=== PATIENT | male | born 1955 | race Asian ===

== ENCOUNTER → 2017-12-10 | Outpatient (CLI) | payer MEDICARE, OTHER | END | disposition home or self-care (01) | LOC: RADPV 11:31 | PROVIDERS: ATTEND Legal Medicine | DX: R05 Cough (principal); I70.0 Atherosclerosis of aorta | CPT/HCPCS: 71046 ==

== ENCOUNTER → 2018-04-30 | Outpatient (CLI) | payer MEDICARE, OTHER | END | disposition home or self-care (01) | LOC: RADPV 11:04 | PROVIDERS: ATTEND Legal Medicine | DX: M77.51 Other enthesopathy of right foot and ankle (principal); M10.9 Gout, unspecified; M19.071 Primary osteoarthritis, right ankle and foot ==

== ENCOUNTER 2024-11-10 00:39 | Inpatient (IN) | payer MEDICARE, OTHER ==
[2024-11-09 02:05] VITALS: PULSE 136; RESP 40; O2SAT 100
[2024-11-10] VITALS (7 sets, daily range): BP systolic 120–150; BP diastolic 74–89; PULSE 80–136; RESP 18–40; TEMP 98.3–99.3; O2SAT 94–100
[~2024-11-10] VITALS: Ht 167.6 cm; Wt 58.1 kg
[2024-11-10] MEDS: FUROSEMIDE 40 MG/4 ML VIAL IVP ONE (01:44)
[2024-11-10] MEDS: NITROGLYCERIN 2% (1 GM=INCH) OINTMENT PACKET TP ONE (01:44)
[2024-11-10] MEDS: ASPIRIN 325 MG TABLET PO ONE (01:44)
[2024-11-10] MEDS: NITROGLYCERIN 0.4 MG SUBLINGUAL TABLET #25 SL ONE (01:45)
[2024-11-10] MEDS ORDERED: 0.9% SODIUM CHLORIDE 10 ML SYRINGE IVP PRN (01:45)
[2024-11-10] MEDS: INSULIN REGULAR, HUMAN 100 UNITS/ML IVP ONE (01:50)
[2024-11-10] MEDS: SODIUM CHLORIDE 0.9% 250 ML IV ONE (01:57)
[2024-11-10] MEDS: CefTRIAXone 1 GM/DEXTROSE 50 ML IV ONE (02:04)
[2024-11-10 02:10] LABS: BASOPHILS % (AUTO) 1.1 % (0.0-2.0); EOSINOPHILS % (AUTO) 1.4 % (1.0-6.0); HEMATOCRIT 44.6 % (41-53); HEMOGLOBIN 14.5 g/dL (13.5-17.5); LYMPHOCYTES # (AUTO) 2.2 K/uL (1.0-4.8); LYMPHOCYTES % (AUTO) 16.4 % (22.0-44.0); MEAN CORPUSCULAR HEMOGLOBIN 33.2 pg (26.0-34.0); MEAN CORPUSCULAR HGB CONC 32.4 G/dL (31.0-37.0); MEAN CORPUSCULAR VOLUME 102 fL (80-100); MONOCYTES # (AUTO) 1.1 K/uL (0.1-1.0); MONOCYTES % (AUTO) 8.2 % (2.0-9.0); NEUTROPHILS # (AUTO) 9.9 K/uL (1.8-7.7); NEUTROPHILS % (AUTO) 72.9 % (40.0-70.0); PLATELET COUNT (AUTO) 296 K/uL (150-450); RED BLOOD CELL COUNT(AUTO) 4.36 MIL/uL (4.50-5.90); RED CELL DISTRIBUTION WIDTH 13.7 % (11.5-14.5); WHITE BLOOD COUNT (AUTO) 13.6 K/uL (4.5-11.0)
[2024-11-10 02:19] LABS: ABG BASE EXCESS -9.7 mmol/L (-2.0-3.0); ABG CARBOXYHEMOGLOBIN 0.9 % (0.5-1.5); ABG HCO3 17.1 mmol/L (21.0-28.0); ABG METHEMOGLOBIN 0.6 % (0.0-1.5); ABG OXYGEN CONTENT 20.7 mL/dL (15.0-23.0); ABG OXYHEMOGLOBIN 98.5 % (94.0-98.0); ABG PCO2 43 mmHg (32.0-48.0); ABG TOTAL HEMOGLOBIN 14.5 G/dL (13.5-17.5); SOURCE, BLOOD GAS ARTERIAL; TEMPERATURE, FAHRENHEIT, BG 96.8 FAHREN (96.0-98.6)
[2024-11-10 02:24] LABS: ABG A-A DIFF O2 397.1 mmHg (10-20.0); ABG PH 7.239 (7.350-7.450); ALLEN TEST, BLOOD GAS Positive; O2 DEVICE,BLOOD GAS BIPAP (ROOM AIR); SITE, BLOOD GAS LFT RADIAL
[2024-11-10 02:25] LABS: INSPIRATORY TIME, BG 0.9 SEC
[2024-11-10 02:27] LABS: COVID AG,FIA SOURCE NASAL SWAB
[2024-11-10 02:40] LABS: LACTIC ACID 5.5 mmol/L (0.4-2.0)
[2024-11-10 02:47] LABS: B-TYPE NATRIURETIC PEPTIDE 2240 pg/mL (0-100)
[2024-11-10 02:47] LABS: SARS-COV2 (COVID) ANTIGEN,FIA Negative (Negative)
[2024-11-10 02:48] LABS: INFLUENZA TYPE A NEGATIVE FOR TYPE A (NEGATIVE); INFLUENZA TYPE B NEGATIVE FOR TYPE B (NEGATIVE)
[2024-11-10 02:49] LABS: ALANINE AMINOTRANSFERASE 41 U/L (12-78); ALBUMIN 2.9 g/dL (3.4-5.0); ALKALINE PHOSPHATASE 259 U/L (46-116); ANION GAP 16 mmol/L (8-16); ASPARTATE AMINOTRANSFERASE 64 U/L (15-37); BILIRUBIN,TOTAL 0.7 mg/dL (0.1-1.0); CALCIUM, TOTAL 8.8 mg/dL (8.8-10.5); CARBON DIOXIDE 20 mmol/L (22-29); CHLORIDE 96 mmol/L (98-107); CREATININE 1.48 mg/dL (0.60-1.30); GLOMERULAR FILTR. RATE CALC 47 mL/min (>60); LIPASE 36 U/L (16-77); POTASSIUM 3.8 mmol/L (3.5-5.1); SODIUM SERUM 132 mmol/L (136-145); THYROID STIMULATING HORMONE 2.81 uIU/mL (0.36-3.74); TOTAL PROTEIN, SERUM 7.7 g/dL (6.4-8.2); UREA NITROGEN, BLOOD 21 mg/dL (7-18)
[2024-11-10 02:51] LABS: GLUCOSE,RANDOM 493 mg/dL (70-110)
[2024-11-10] MEDS ORDERED: DEXTROSE 50%-WATER 25 GM/50 ML SYRINGE IVP PRN (03:00)
[2024-11-10 03:05] LABS: GLUCOMETER DEV NAME(LOC) ERT.6; GLUCOSE,POINT OF CARE 547 MG/DL (70-110)
[2024-11-10 03:07] LABS: APPEARANCE,URINE CLEAR (CLEAR); BILIRUBIN,URINE NEGATIVE (NEGATIVE); COLOR,URINE LIGHT YELLOW (YELLOW); GLUCOSE, URINE (UA) >=1000 mg/dL (NEGATIVE); KETONES,URINE NEGATIVE (NEGATIVE); LEUKOCYTE ESTERASE ,URINE NEGATIVE (NEGATIVE); NITRATE,URINE NEGATIVE (NEGATIVE); OCCULT BLOOD,URINE NEGATIVE (NEGATIVE); PROTEIN,URINE TRACE mg/dL (NEGATIVE); SPECIFIC GRAVITIY, URINE 1.012 (1.003-1.030); UROBILINOGEN,URINE <=1.0 mg/dL (<=1.0)
[2024-11-10] MEDS ORDERED: ACETAMINOPHEN 325 MG TABLET PO PRN (03:15)
[2024-11-10] MEDS ORDERED: ONDANSETRON HCL 4 MG/2 ML VIAL IVP PRN (03:15)
[2024-11-10] MEDS ORDERED: IPRATROPIUM BROMIDE 0.5 MG/2.5 ML NEB SOLUTION NEB PRN (03:15)
[2024-11-10] MEDS ORDERED: ALBUTEROL SULFATE 2.5 MG/0.5 ML NEB SOLUTION NEB PRN (03:15)
[2024-11-10 03:19] LABS: BACTERIA,URINE Rare /HPF (None Seen); RBC,URINE 0-2 /HPF (0-2); WBC,URINE 0-2 /HPF (0-5)
[2024-11-10] MEDS: INSULIN GLARGINE,HUM.REC.ANLOG 100 UNITS/ML SQ SCH ×3 (03:20→20:50)
[2024-11-10] MEDS: VANCOMYCIN 1.25 GM/WATER(PEG) 250 ML IV ONE (03:29)
[2024-11-10 03:37] LABS: TROPONIN I-HIGH SENSITIVITY 503 ng/L (<76)
[2024-11-10 06:58] LABS: TROPONIN I-HIGH SENSITIVITY 354 ng/L (<76)
[2024-11-10] MEDS: HEPARIN SODIUM,PORCINE 5,000 UNITS/ML VIAL SQ SCH (07:13)
[2024-11-10] MEDS: DOCUSATE SODIUM 100 MG CAPSULE PO SCH (07:14)
[2024-11-10 09:11] LABS: GLUCOMETER DEV NAME(LOC) ERT.6; GLUCOSE,POINT OF CARE 286 MG/DL (70-110)
[2024-11-10 09:11] LABS: GLUCOMETER DEV NAME(LOC) ERT.6; GLUCOSE,POINT OF CARE 369 MG/DL (70-110)
[2024-11-10 14:00] LABS: TROPONIN I-HIGH SENSITIVITY 332 ng/L (<76)
[2024-11-10] MEDS: INSULIN LISPRO 100 UNITS/ML SQ PRN (17:08)
[2024-11-10 18:31] LABS: GLUCOMETER DEV NAME(LOC) 5S.1D; GLUCOSE,POINT OF CARE 311 MG/DL (70-110)
[2024-11-10] MEDS: GuaiFENesin/D-METHORPHAN [SUGAR-FREE] 200-20MG/10 ML SYRUP UDCUP PO PRN (21:02)
[2024-11-10] MEDS: FUROSEMIDE 20 MG/2 ML VIAL IVP SCH (21:02)
[2024-11-10] MEDS ORDERED: FUROSEMIDE 20 MG/2 ML VIAL IVP SCH (21:45)
[2024-11-10] MEDS: CHLORHEXIDINE GLUCONATE 2% TOWELETTE [2'S/6'S] TP SCH (22:15)
[2024-11-11] VITALS (7 sets, daily range): BP systolic 113–139; BP diastolic 55–80; PULSE 73–99; RESP 18–20; TEMP 97.9–98.6; O2SAT 95–100
[2024-11-11 07:23] LABS: BASOPHILS % (AUTO) 0.9 % (0.0-2.0); EOSINOPHILS % (AUTO) 0.9 % (1.0-6.0); HEMATOCRIT 37.9 % (41-53); HEMOGLOBIN 12.8 g/dL (13.5-17.5); LYMPHOCYTES # (AUTO) 1.5 K/uL (1.0-4.8); LYMPHOCYTES % (AUTO) 12.5 % (22.0-44.0); MEAN CORPUSCULAR HEMOGLOBIN 33.3 pg (26.0-34.0); MEAN CORPUSCULAR HGB CONC 33.7 G/dL (31.0-37.0); MEAN CORPUSCULAR VOLUME 99 fL (80-100); MONOCYTES # (AUTO) 1.2 K/uL (0.1-1.0); MONOCYTES % (AUTO) 9.3 % (2.0-9.0); NEUTROPHILS # (AUTO) 9.5 K/uL (1.8-7.7); NEUTROPHILS % (AUTO) 76.4 % (40.0-70.0); PLATELET COUNT (AUTO) 304 K/uL (150-450); RED BLOOD CELL COUNT(AUTO) 3.84 MIL/uL (4.50-5.90); RED CELL DISTRIBUTION WIDTH 13.5 % (11.5-14.5); WHITE BLOOD COUNT (AUTO) 12.4 K/uL (4.5-11.0)
[2024-11-11 07:34] LABS: ANION GAP 12 mmol/L (8-16); CALCIUM, TOTAL 8.2 mg/dL (8.8-10.5); CARBON DIOXIDE 26 mmol/L (22-29); CHLORIDE 100 mmol/L (98-107); CREATININE 1.19 mg/dL (0.60-1.30); GLOMERULAR FILTR. RATE CALC > 60 mL/min (>60); GLUCOSE,RANDOM 239 mg/dL (70-110); POTASSIUM 3.1 mmol/L (3.5-5.1); SODIUM SERUM 138 mmol/L (136-145); UREA NITROGEN, BLOOD 17 mg/dL (7-18)
[2024-11-11] MEDS: VANCOMYCIN 1.25 GM/WATER(PEG) 250 ML IV SCH (08:11)
[2024-11-11 08:21] LABS: GLUCOMETER DEV NAME(LOC) 5S.2D; GLUCOSE,POINT OF CARE 240 MG/DL (70-110)
[2024-11-11] MEDS ORDERED: SODIUM CHLORIDE 0.9% 500 ML IV ONE (08:32)
[2024-11-11] MEDS ORDERED: MAGNESIUM OXIDE 400 MG TABLET PO PRN (09:30)
[2024-11-11] MEDS ORDERED: MAGNESIUM SULFATE 2 GM/WATER 50 ML IV PRN (09:30)
[2024-11-11] MEDS ORDERED: POTASSIUM CHL 10 MEQ/WATER 50 ML IV PRN (09:30)
[2024-11-11] MEDS ORDERED: MAGNESIUM SULFATE 4 GM/WATER 100 ML IV PRN (09:30)
[2024-11-11 11:22] LABS: ALBUMIN 2.6 g/dL (3.4-5.0)
[2024-11-11 11:45] LABS: GLUCOMETER DEV NAME(LOC) 5S.2D; GLUCOSE,POINT OF CARE 180 MG/DL (70-110)
[2024-11-11] MEDS: CARVEDILOL 3.125 MG TABLET PO SCH (12:31)
[2024-11-11] MEDS: POTASSIUM CHLORIDE 20 MEQ ER TABLET PO PRN (15:56)
[2024-11-11 20:35] LABS: GLUCOMETER DEV NAME(LOC) 5S.2D; GLUCOSE,POINT OF CARE 115 MG/DL (70-110)
[2024-11-11] MEDS: VALSARTAN 80 MG TABLET PO SCH (20:35)
[2024-11-11 20:56] LABS: GLUCOMETER DEV NAME(LOC) 5S.2D; GLUCOSE,POINT OF CARE 198 MG/DL (70-110)
[2024-11-11 21:01] LABS: GLUCOMETER DEV NAME(LOC) 5S.1D; GLUCOSE,POINT OF CARE 199 MG/DL (70-110)
[2024-11-11] MEDS: MELATONIN 3 MG TABLET PO PRN (22:47)
[2024-11-12] VITALS (10 sets, daily range): BP systolic 92–125; BP diastolic 58–72; PULSE 56–88; RESP 17–20; TEMP 97.5–98.4; O2SAT 95–99
[2024-11-12 01:56] LABS: GLUCOMETER DEV NAME(LOC) 5S.2D; GLUCOSE,POINT OF CARE 149 MG/DL (70-110)
[2024-11-12 07:28] LABS: CALCIUM, TOTAL 8.6 mg/dL (8.8-10.5); CREATININE 1.37 mg/dL (0.60-1.30); MAGNESIUM 1.8 mg/dL (1.80-2.40); POTASSIUM 3.1 mmol/L (3.5-5.1)
[2024-11-12] MEDS: POTASSIUM CHLORIDE 10% 40 MEQ/30 ML LIQUID UDCUP PO ONE (09:00)
[2024-11-12] MEDS: CefTRIAXone 1 GM/DEXTROSE 50 ML IV SCH (11:30)
[2024-11-12 12:15] LABS: GLUCOMETER DEV NAME(LOC) 5S.2D; GLUCOSE,POINT OF CARE 85 MG/DL (70-110)
[2024-11-12 13:11] LABS: GLUCOMETER DEV NAME(LOC) 5N.2C; GLUCOSE,POINT OF CARE 226 MG/DL (70-110)
[2024-11-12 17:23] LABS: POTASSIUM 4.1 mmol/L (3.5-5.1)
[2024-11-12 21:31] LABS: GLUCOMETER DEV NAME(LOC) 5S.2D; GLUCOSE,POINT OF CARE 95 MG/DL (70-110)
[2024-11-13] VITALS (8 sets, daily range): BP systolic 99–129; BP diastolic 52–76; PULSE 72–87; RESP 17–19; TEMP 97.5–98.5; O2SAT 96–100
[2024-11-13 06:43] LABS: BASOPHILS % (AUTO) 0.8 % (0.0-2.0); EOSINOPHILS % (AUTO) 2.5 % (1.0-6.0); HEMATOCRIT 38.1 % (41-53); HEMOGLOBIN 12.9 g/dL (13.5-17.5); LYMPHOCYTES # (AUTO) 1.7 K/uL (1.0-4.8); LYMPHOCYTES % (AUTO) 17.6 % (22.0-44.0); MEAN CORPUSCULAR HEMOGLOBIN 33.6 pg (26.0-34.0); MEAN CORPUSCULAR VOLUME 99 fL (80-100); MONOCYTES # (AUTO) 0.9 K/uL (0.1-1.0); MONOCYTES % (AUTO) 9.1 % (2.0-9.0); NEUTROPHILS # (AUTO) 6.9 K/uL (1.8-7.7); PLATELET COUNT (AUTO) 339 K/uL (150-450); RED BLOOD CELL COUNT(AUTO) 3.85 MIL/uL (4.50-5.90); RED CELL DISTRIBUTION WIDTH 13.7 % (11.5-14.5); WHITE BLOOD COUNT (AUTO) 9.9 K/uL (4.5-11.0)
[2024-11-13 07:08] LABS: ALBUMIN 2.4 g/dL (3.4-5.0); BILIRUBIN,TOTAL 0.5 mg/dL (0.1-1.0); CALCIUM, TOTAL 8.2 mg/dL (8.8-10.5); CREATININE 1.42 mg/dL (0.60-1.30); POTASSIUM 4.1 mmol/L (3.5-5.1); TOTAL PROTEIN, SERUM 6.5 g/dL (6.4-8.2); VANCOMYCIN,RANDOM 12.7 mcg/mL (25.0-50.0)
[2024-11-13 07:41] LABS: GLUCOMETER DEV NAME(LOC) 5S.2D; GLUCOSE,POINT OF CARE 269 MG/DL (70-110)
[2024-11-13] MEDS: FUROSEMIDE 20 MG/2 ML VIAL IVP SCH (08:36)
[2024-11-13] MEDS: POTASSIUM CHLORIDE 8 MEQ ER TABLET PO SCH (09:59)
[2024-11-13 11:11] LABS: GLUCOMETER DEV NAME(LOC) 5N.2C; GLUCOSE,POINT OF CARE 107 MG/DL (70-110)
[2024-11-13 17:16] LABS: GLUCOMETER DEV NAME(LOC) 5S.2D; GLUCOSE,POINT OF CARE 84 MG/DL (70-110)
[2024-11-13 19:11] LABS: GLUCOMETER DEV NAME(LOC) 5S.1D; GLUCOSE,POINT OF CARE 286 MG/DL (70-110)
[2024-11-13 23:46] LABS: GLUCOMETER DEV NAME(LOC) 5S.1D; GLUCOSE,POINT OF CARE 142 MG/DL (70-110)
[2024-11-14 05:30] VITALS: BP 101/56; PULSE 80; RESP 18; TEMP 98.9; O2SAT 99
[2024-11-14 07:35] LABS: BASOPHILS % (AUTO) 1.5 % (0.0-2.0); HEMATOCRIT 38.4 % (41-53); HEMOGLOBIN 13.1 g/dL (13.5-17.5); LYMPHOCYTES # (AUTO) 1.6 K/uL (1.0-4.8); LYMPHOCYTES % (AUTO) 15.6 % (22.0-44.0); MEAN CORPUSCULAR HEMOGLOBIN 33.5 pg (26.0-34.0); MEAN CORPUSCULAR VOLUME 99 fL (80-100); MONOCYTES # (AUTO) 1.1 K/uL (0.1-1.0); MONOCYTES % (AUTO) 11.1 % (2.0-9.0); NEUTROPHILS # (AUTO) 6.8 K/uL (1.8-7.7); NEUTROPHILS % (AUTO) 67.8 % (40.0-70.0); PLATELET COUNT (AUTO) 356 K/uL (150-450); RED CELL DISTRIBUTION WIDTH 13.8 % (11.5-14.5); WHITE BLOOD COUNT (AUTO) 10.1 K/uL (4.5-11.0)
[2024-11-14 07:42] LABS: CALCIUM, TOTAL 8.7 mg/dL (8.8-10.5); CREATININE 1.2 mg/dL (0.60-1.30)
[2024-11-14 08:25] LABS: GLUCOMETER DEV NAME(LOC) 5S.2D; GLUCOSE,POINT OF CARE 82 MG/DL (70-110)
[2024-11-14] MEDS: SPIRONOLACTONE 25 MG TABLET PO SCH (09:13)
[2024-11-14] MEDS ORDERED: SODIUM CHLORIDE 0.9% 500 ML IV ONE (09:23)
[2024-11-14] MEDS: ASPIRIN 81 MG DR TABLET PO SCH (11:09)
[2024-11-14 11:37] VITALS: BP 106/55; PULSE 81; RESP 18; TEMP 98.2; O2SAT 100
[2024-11-14 11:41] LABS: GLUCOMETER DEV NAME(LOC) 5S.1D; GLUCOSE,POINT OF CARE 95 MG/DL (70-110)
[2024-11-14 11:50] LABS: GLUCOMETER DEV NAME(LOC) 5N.2C; GLUCOSE,POINT OF CARE 180 MG/DL (70-110)
[2024-11-14 13:13] VITALS: BP 106/53; PULSE 81; RESP 18; TEMP 98.2; O2SAT 98
[2024-11-14 16:45] VITALS: BP 110/60; PULSE 82; RESP 18; TEMP 98; O2SAT 98
[2024-11-14 19:26] LABS: GLUCOMETER DEV NAME(LOC) 5S.1D; GLUCOSE,POINT OF CARE 231 MG/DL (70-110)
[2024-11-14 20:22] VITALS: BP 137/67; PULSE 86; RESP 18; TEMP 98.3; O2SAT 98
[2024-11-14 21:26] LABS: GLUCOMETER DEV NAME(LOC) 5N.2C; GLUCOSE,POINT OF CARE 85 MG/DL (70-110)
[2024-11-15 06:14] VITALS: BP 131/66; PULSE 87; RESP 18; TEMP 98.1; O2SAT 100
[2024-11-15] MEDS ORDERED: OMEP20 PO (06:33)
[2024-11-15] MEDS ORDERED: VALS160T31 PO (06:35)
[2024-11-15] MEDS ORDERED: CARV6 PO (06:36)
[2024-11-15] MEDS ORDERED: FURO-152 PO (06:37)
[2024-11-15] MEDS ORDERED: ASPI81TA87 PO (06:39)
[2024-11-15] MEDS ORDERED: GLYB-145 PO (06:40)
[2024-11-15] MEDS ORDERED: SITA1TAB6 PO (06:41)
[2024-11-15 07:44] LABS: BASOPHILS % (AUTO) 2.3 % (0.0-2.0); EOSINOPHILS % (AUTO) 3.5 % (1.0-6.0); HEMOGLOBIN 14.1 g/dL (13.5-17.5); LYMPHOCYTES # (AUTO) 1.8 K/uL (1.0-4.8); LYMPHOCYTES % (AUTO) 17.9 % (22.0-44.0); MEAN CORPUSCULAR HEMOGLOBIN 34.2 pg (26.0-34.0); MEAN CORPUSCULAR HGB CONC 34.4 G/dL (31.0-37.0); MEAN CORPUSCULAR VOLUME 99 fL (80-100); MONOCYTES # (AUTO) 1.2 K/uL (0.1-1.0); MONOCYTES % (AUTO) 11.3 % (2.0-9.0); NEUTROPHILS # (AUTO) 6.6 K/uL (1.8-7.7); PLATELET COUNT (AUTO) 414 K/uL (150-450); RED BLOOD CELL COUNT(AUTO) 4.12 MIL/uL (4.50-5.90); RED CELL DISTRIBUTION WIDTH 13.5 % (11.5-14.5); WHITE BLOOD COUNT (AUTO) 10.2 K/uL (4.5-11.0)
[2024-11-15 07:47] VITALS: BP 134/62; PULSE 83; RESP 19; TEMP 98.4; O2SAT 97
[2024-11-15 07:55] LABS: CALCIUM, TOTAL 8.4 mg/dL (8.8-10.5); CREATININE 1.3 mg/dL (0.60-1.30); POTASSIUM 3.9 mmol/L (3.5-5.1)
[2024-11-15] MEDS: ATORVASTATIN CALCIUM 40 MG TABLET PO SCH (08:18)
[2024-11-15] MEDS: FUROSEMIDE 20 MG TABLET PO SCH (08:39)
[2024-11-15 09:11] LABS: GLUCOMETER DEV NAME(LOC) 5S.1D; GLUCOSE,POINT OF CARE 179 MG/DL (70-110)
[2024-11-15 09:11] LABS: GLUCOMETER DEV NAME(LOC) 5S.1D; GLUCOSE,POINT OF CARE 169 MG/DL (70-110)
[2024-11-15] MEDS ORDERED: SPIR-37 PO (09:11)
[2024-11-15] MEDS ORDERED: VALS80TA2 PO (09:11)
[2024-11-15] MEDS ORDERED: AMOX-457 PO (09:11)
[2024-11-15] MEDS ORDERED: FURO20TA4 PO (09:11)
[2024-11-15] MEDS ORDERED: ATOR40TA71 PO (09:11)
[2024-11-15] MEDS ORDERED: CARV3 PO (09:11)
== END 2024-11-15 11:15 | disposition home or self-care (01) | DRG 871 ==
LOC: EMS 00:39 → EDH 04:12 → 5S 15:00
PROVIDERS: ADMIT Internal Medicine; ATTEND Internal Medicine
PROC: 5A09357 Assistance with Respiratory Ventilation, Less than 24 Consecutive Hours, Continuous Positive Airway Pressure (ICD-10-PCS; principal; 2024-11-10)
PROC: 5A0935A Assistance with Respiratory Ventilation, Less than 24 Consecutive Hours, High Flow/Velocity Cannula (ICD-10-PCS; 2024-11-10)
PROC: 5A0935A Assistance with Respiratory Ventilation, Less than 24 Consecutive Hours, High Flow/Velocity Cannula (ICD-10-PCS; 2024-11-11)
PROC: 5A0935A Assistance with Respiratory Ventilation, Less than 24 Consecutive Hours, High Flow/Velocity Cannula (ICD-10-PCS; 2024-11-12)
PROC: 5A0935A Assistance with Respiratory Ventilation, Less than 24 Consecutive Hours, High Flow/Velocity Cannula (ICD-10-PCS; 2024-11-13)
DX: A41.9 Sepsis, unspecified organism (principal); I50.43 Acute on chronic combined systolic (congestive) and diastolic (congestive) heart failure; J18.9 Pneumonia, unspecified organism; J96.01 Acute respiratory failure with hypoxia; E87.20 Acidosis, unspecified; I13.0 Hypertensive heart and chronic kidney disease with heart failure and stage 1 through stage 4 chronic kidney disease, or unspecified chronic kidney disease; I42.0 Dilated cardiomyopathy; N17.9 Acute kidney failure, unspecified; Z20.822 Contact with and (suspected) exposure to COVID-19; R65.20 Severe sepsis without septic shock; E11.22 Type 2 diabetes mellitus with diabetic chronic kidney disease; E11.65 Type 2 diabetes mellitus with hyperglycemia; N18.30 Chronic kidney disease, stage 3 unspecified; E78.00 Pure hypercholesterolemia, unspecified; F17.210 Nicotine dependence, cigarettes, uncomplicated; I25.10 Atherosclerotic heart disease of native coronary artery without angina pectoris; I34.0 Nonrheumatic mitral (valve) insufficiency; Z79.82 Long term (current) use of aspirin; Z95.810 Presence of automatic (implantable) cardiac defibrillator; Z95.1 Presence of aortocoronary bypass graft; Z79.899 Other long term (current) drug therapy
CPT/HCPCS: 36600; 71045; 80048; 80053; 80202; 81001; 82009; 82040; 82805; 82962; 83605; 83690; 83735; 83880; 84132; 84145; 84443; 84484; 85025; 85730; 87040; 87804; 93005; 93306; 94660; 97166; 99291; J0696; J1644; J1815; J1940; J7030; J7040; 36415-L1; 36415-TC